=== PATIENT | male | born 1960 | race Caucasian/White ===

== ENCOUNTER 2023-05-18 20:19 | Emergency (ER) | payer BC ==
[~2023-05-18] VITALS: Ht 172.7 cm; Wt 65.8 kg
[2023-05-18 20:34] VITALS: BP 158/88
[2023-05-18] MEDS ORDERED: MELO7.5 (22:50)
[2023-05-18] MEDS ORDERED: Crestor5 MG (22:51)
[2023-05-18] MEDS ORDERED: CEPH500 PO (23:19)
== END 2023-05-18 23:28 | disposition home or self-care (01) ==
LOC: ER 20:19
DX: L03.012 Cellulitis of left finger (principal); E78.5 Hyperlipidemia, unspecified; Z79.899 Other long term (current) drug therapy
CPT/HCPCS: 73140; 99283-25; A9270

== ENCOUNTER → 2023-05-27 | Outpatient (CLI) | payer BC ==
[~2023-05-27] MED LIST: CEPH500 PO; Crestor5 MG; MELO7.5
[2023-05-30 07:12] LABS: HSV-1 DNA Negative (Negative); HSV-2 DNA Negative (Negative)
== END | disposition home or self-care (01) ==
LOC: LAB SHORT 15:13 → LAB 15:13
PROVIDERS: Emergency Medicine
DX: S61.203A Unspecified open wound of left middle finger without damage to nail, initial encounter (principal)
CPT/HCPCS: 87529

== ENCOUNTER 2024-09-02 05:56 | Day surgery (SDC) | payer BC ==
[~2024-09-02] VITALS: Ht 172.7 cm; Wt 67.1 kg
[2024-09-02] VITALS (18 sets, daily range): BP systolic 93–156; BP diastolic 55–86
[~2024-09-02 05:56] MED LIST changes: +ALBU90OI INH; +Amlodipine-Ben1 EACH PO; +Crestor40 MG PO; -Crestor5 MG; -MELO7.5; +MELO7.5 PO; +SYMBICORT 80-10.2 GM INH
[2024-09-02] MEDS ORDERED: Chlorhexidine Mouth Care 15 ML UDC MT SCH (06:15)
[2024-09-02] MEDS ORDERED: OxyCODONE HCL 10 MG TABCR PO SCH (06:15)
[2024-09-02] MEDS ORDERED: Ropivacaine 0.5% HCl/Pf 123.125 MG,EPINEPHrine HCL 0.25 MG,Ketorolac Tromethamine 15 MG... INFIL SCH (06:15)
[2024-09-02] MEDS ORDERED: Acetaminophen 500 MG Tab PO SCH ×2 (06:15→08:00)
[2024-09-02] MEDS ORDERED: Lactated Ringer's 1,000 ML IV SCH ×2 (06:15→07:50)
[2024-09-02] MEDS ORDERED: CeFAZolin Sodium 2,000 MG in NS 100 ML IV SCH ×2 (06:15→16:00)
[2024-09-02] MEDS ORDERED: Tranexamic Acid 100 ML IV SCH (06:40)
[2024-09-02] MEDS ORDERED: Midazolam HCl 1MG / ML 2ML Vial IV ONE (07:15)
[2024-09-02] MEDS ORDERED: Dexmedetomidine HCL 200 MCG / 2 ML ONE (07:27)
[2024-09-02] MEDS ORDERED: Albuterol HFA200 ACT/6.7 GM INH INH PRN (07:45)
[2024-09-02] MEDS ORDERED: DiphenhydrAMINE HCL 25 MG Cap PO PRN (07:45)
[2024-09-02] MEDS ORDERED: Bisacodyl 10 MG Supp PR PRN (07:45)
[2024-09-02] MEDS ORDERED: Mometasone/Formoterol MDI 100/5 mcg 13 GM INH SCH (07:45)
[2024-09-02] MEDS ORDERED: FLU VACC TS2024-25(6MOS UP)/PF 45 MCG/0.5 ML SYRINGE IM SCH (07:50)
[2024-09-02] MEDS ORDERED: HYDROmorphone HCl/Pf 1MG SYR IV PRN (07:50)
[2024-09-02] MEDS ORDERED: Metoclopramide HCl 5MG / ML 2ML Vial IV PRN (07:50)
[2024-09-02] MEDS ORDERED: Magnesium Hydroxide Conc 10 ML UDC PO PRN (07:50)
[2024-09-02] MEDS ORDERED: OxyCODONE HCL 5 MG TAB PO PRN ×2 (07:55)
[2024-09-02] MEDS ORDERED: Ondansetron HCl 2 MG / ML 2ML Vial IV PRN ×2 (07:55→09:00)
[2024-09-02] MEDS ORDERED: Promethazine HCl 25 MG Tab PO PRN (07:55)
[2024-09-02] MEDS ORDERED: Prochlorperazine Edisylate 10 mg Vial IV PRN (07:55)
[2024-09-02] MEDS ORDERED: FentaNYL Citrate 50 MCG/ML 2 ML Injection IV PRN ×2 (08:55→09:00)
[2024-09-02] MEDS ORDERED: AmLODIPine Besylate 5 MG Tab PO SCH (09:00)
[2024-09-02] MEDS ORDERED: Lisinopril 20 MG Tab PO SCH (09:00)
[2024-09-02] MEDS ORDERED: Docusate Sodium 100 MG Cap PO SCH (09:00)
[2024-09-02] MEDS ORDERED: Albuterol 2.5 MG/3 ML VIAL INH PRN (09:00)
--- NOTE | 2024-09-02 11:09 | NUR ---
PT ARRIVED TO THE ROOM AT 1005. PT ALERT/ORIENTED UPON ARRIVAL. PT REPORTS N/T TO BLE, HE HAD SPINAL ANESTHESIA. SPINAL ANESTHESIA SITE WNL. PT EDUCATED TO USE THE CALL LIGHT. CALL LIGHT WITHIN REACH. FAMILY AT BEDSIDE FOR SUPPORT.
[2024-09-02] MEDS ORDERED: Ketorolac Tromethamine 15mg Vial IV SCH (12:00)
[2024-09-02] MEDS ORDERED: MASOPHEN500 M1 PO (15:00)
[2024-09-02] MEDS ORDERED: ASPI81CH PO (15:00)
[2024-09-02] MEDS ORDERED: OXYC5 PO (15:01)
--- NOTE | 2024-09-02 16:30 | NUR ---
DISCHARGE PT PROVIDED WITH WRITTEN AND VERBAL DISCHARGE INSTRUCTIONS, HE REPORTED UNDERSTANDING. CLEAN DRESSING PROVIDED, PT EDUCATED TO USE DRESSING IF INCISION SITE BEGINS TO DRAIN. PAIN MANAGED WITH PO PAIN MEDICATION AT TIME OF DISCHARGE. VSS PRIOR TO DISCHARGE. PT WAS ABLE TO VOID. PT CLEARED THERAPY PRIOR TO DISCHARGE. PT ALSO TOLERATED PO. DR. MARTINEZ NOTIFIED OF PT'S WISH TO DISCHARGE, SHE STATED OK FOR PT TO DC HOME. HE WAS ASSISTED OUT IN A W/C AT APPROXIMATELY 1627.
[2024-09-03] MEDS ORDERED: Aspirin 81 MG Chew PO SCH (09:00)
== END 2024-09-02 16:25 | disposition home or self-care (01) ==
LOC: ORSCMMR 05:56 → ORD 07:30 → ORSCMMR 07:30 → SURS 09:47 → ORSCMMR 16:25
PROVIDERS: Orthopaedic Surgery
PROC: 0SR90JA Replacement of Right Hip Joint with Synthetic Substitute, Uncemented, Open Approach (ICD-10-PCS; principal; 2024-09-02 07:30)
DX: M16.11 Unilateral primary osteoarthritis, right hip (principal); E78.5 Hyperlipidemia, unspecified; I10 Essential (primary) hypertension; Z87.891 Personal history of nicotine dependence; Z79.899 Other long term (current) drug therapy
CPT/HCPCS: 72170; 94640; 94664; 94760; 97110; 97116; 97162; A9270; C1776; J0171; J0690; J0735; J1885; J2250; J2795; J7120

== ENCOUNTER 2024-10-24 10:37 | Emergency (ER) | payer BC ==
[~2024-10-24] VITALS: Ht 172.7 cm; Wt 68.0 kg
[~2024-10-24 10:37] MED LIST changes: +ASPI81CH PO; +MASOPHEN500 M1 PO; +OXYC5 PO
[2024-10-24 11:12] VITALS: BP 167/107
[2024-10-24 11:21] LABS: BASOPHILS ABSOLUTE AUTO 0.08 K/mm3 (0.00-0.23); BASOPHILS PERCENT AUTO 1 % (0-2); EOSINOPHILS ABSOLUTE AUTO 0.79 K/mm3 (0.00-0.68); EOSINOPHILS PERCENT AUTO 6 % (0-6); Hematocrit 39.1 % (37.0-53.0); Hemoglobin 12.9 g/dL (13.5-17.5); IMMATURE GRAN ABSOLUTE AUTO 0.03 K/mm3 (0.00-0.10); IMMATURE GRAN PERCENT AUTO 0 % (0-1); LYMPHOCYTES ABSOLUTE AUTO 1.96 K/mm3 (0.84-5.20); LYMPHOCYTES PERCENT AUTO 15 % (21-46); MONOCYTES ABSOLUTE AUTO 0.89 K/mm3 (0.16-1.47); MONOCYTES PERCENT AUTO 7 % (4-13); Mean Corpuscular HGB 29.2 pg (26.0-34.0); Mean Corpuscular Volume 89 fL (80-100); Mean Platelet Volume 9.3 fL (9.1-12.4); NEUTROPHILS ABSOLUTE AUTO 9.02 K/mm3 (1.96-9.15); NEUTROPHILS PERCENT AUTO 71 % (41-73); Platelet Count 376 K/mm3 (150-400); RDW Coefficient Variation 13.2 % (11.7-14.2); RDW Standard Deviation 42.9 fL (35.1-46.3); Red Blood Cell Count 4.42 M/mm3 (4.30-5.90); White Blood Cell Count 12.77 K/mm3 (4.00-11.30)
[2024-10-24] MEDS ORDERED: Ondansetron HCl 2 MG / ML 2ML Vial IV ONE (11:25)
[2024-10-24] MEDS ORDERED: Ketorolac Tromethamine 30mg Vial IV ONE (11:25)
[2024-10-24 11:42] LABS: Albumin, Blood 3.8 g/dL (3.4-5.0); Albumin/Globulin Ratio 1.1 (0.8-1.8); Bilirubin, Total 0.7 mg/dL (0.1-1.0); Bun/Creatinine Ratio 19.8 (12.0-20.0); Calcium, Blood 9.4 mg/dL (8.5-10.1); Creatinine, Blood 1.01 mg/dL (0.60-1.20); Globulin, Blood 3.4 g/dL (2.2-4.0); Total Protein, Blood 7.2 g/dL (6.4-8.2)
[2024-10-24 12:57] LABS: Source, Urine Clean Catch
[2024-10-24 13:05] LABS: Appearance, Urine Clear (Clear); Bilirubin, Urine Neg (Neg); Blood, Urine Neg (Neg); Glucose Qualitative, Urine Neg (Neg); Ketones, Urine 3+ (Neg); Leukocyte Esterase, Urine Neg (Neg); Nitrite, Urine Neg (Neg); Protein, Urine Neg (Neg); Urobilinogen, Urine NORM (Normal)
[2024-10-24 13:22] LABS: Color, Urine Pale Yellow (P-Yellow)
[2024-10-24] MEDS ORDERED: ONDA4ODT MM (13:53)
[2024-10-24] MEDS ORDERED: IBUP800 PO (13:53)
== END 2024-10-24 14:02 | disposition home or self-care (01) ==
LOC: ER 10:37
PROVIDERS: Physician Assistant
DX: N13.2 Hydronephrosis with renal and ureteral calculous obstruction (principal); E78.5 Hyperlipidemia, unspecified; Z79.52 Long term (current) use of systemic steroids; Z79.899 Other long term (current) drug therapy
CPT/HCPCS: 74177; 80053; 81003; 83605; 83690; 85025; 96374-59; 96375; 99284-25; J1885; J2405; Q9967

== ENCOUNTER 2025-06-03 12:19 | Day surgery (SDC) | payer BC ==
[~2025-06-03] VITALS: Ht 165.1 cm; Wt 71.6 kg
[2025-06-03] VITALS (30 sets, daily range): BP systolic 133–184; BP diastolic 82–104
[~2025-06-03 12:19] MED LIST changes: +IBUP800 PO; +ONDA4ODT MM
--- NOTE | 2025-06-03 13:29 | NUR ---
History, Chart, Medications and Allergies reviewed before start of procedure. Pre-Op teaching done. Pt verbalizes understanding. PT STATES HE DRANK SOME TEA THIS MORNING. Patient states colon prep results DARK YELLOW.
[2025-06-03] MEDS ORDERED: Midazolam HCl 1MG / ML 2ML Vial ONE (13:58)
--- NOTE | 2025-06-03 14:22 | NUR ---
06/03/25 1422 Valentina Rios CONFIRMED AND REVIEWED H&P, MEDCICATIONS, ALLERGIES, MEDICAL HISTORY, RESPIRATORY HISTORY, VITAL SIGNS, 3-LEAD EKG, CONSENTS, AND PHYSICIAN ORDERS. PATIENT CONFIRMS NPO STATUS AND AGREES WITH SCHEDULED PROCEDURE. MONITOR INTACT WITH CONTINUOUS PULSE OXIMETRY, CAPNOGRAPHY, 3-LEAD EKG, INTERMITTENT BP. SUPPLEMENTAL O2 TO BE TITRATED THROUGHOUT PROCEDURE TO MAINTAIN O2 SATURATION ABOVE 90%. PATIENT DETERMINED TO BE ASA APPROPRIATE FOR PROPOFOL SEDATION PRIOR TO START OF PROCEDURE BY DR. STOREY.
--- NOTE | 2025-06-03 15:25 | NUR ---
REVIEWED DISCHARGE INSTRUCTIONS WITH PT AND SPOUSE. DIVERTICULOSIS AND HIGH FIBER HANDOUTS GIVEN. PT REPORTS HIP PAIN THAT IS ONGOING. PT DENIES ABDOMINAL PAIN OR NAUSEA. BP 170'S/100'S. ENCOURAGED PT TO SEEK MEDICAL ADVICE FROM PRIMARY CARE PROVIDER. DISCUSSED THE RISK OR STOKE WITH UNCONTROLLED HYPERTENSION.PT VERBALIZES UNDERSTANDING. DISCHARGED TO HOME, OUT VIA WHEELCHAIR WITH BELONGINGS AND DISCHARGE INSTRUCTIONS ON HAND.
== END 2025-06-03 15:25 | disposition home or self-care (01) ==
LOC: ORSCMMR 12:19 → ORD 12:19 → ORSCMMR 12:20 → ORD 12:20 → ORSCMMR 15:25
PROVIDERS: Family Medicine
PROC: 0DBP8ZX Excision of Rectum, Via Natural or Artificial Opening Endoscopic, Diagnostic (ICD-10-PCS; principal; 2025-06-03 13:30)
DX: Z12.11 Encounter for screening for malignant neoplasm of colon (principal); K62.1 Rectal polyp; K57.30 Diverticulosis of large intestine without perforation or abscess without bleeding; R19.5 Other fecal abnormalities; Z79.899 Other long term (current) drug therapy; I10 Essential (primary) hypertension; J45.909 Unspecified asthma, uncomplicated; E78.5 Hyperlipidemia, unspecified; Z87.891 Personal history of nicotine dependence
CPT/HCPCS: 88305; J2250; J2704; J7120

== ENCOUNTER 2025-06-20 10:43 | Emergency (ER) | payer OTHER, BC ==
[~2025-06-20] VITALS: Ht 165.1 cm; Wt 70.3 kg
[2025-06-20] MEDS ORDERED: Ondansetron 4 MG SoluTab MM ONE (10:50)
[2025-06-20] MEDS ORDERED: IBUP600 PO (11:33)
[2025-06-20 12:14] VITALS: BP 131/92
== END 2025-06-20 12:16 | disposition home or self-care (01) ==
LOC: ER 10:43
DX: S06.0XAA Concussion with loss of consciousness status unknown, initial encounter (principal); E78.5 Hyperlipidemia, unspecified; I10 Essential (primary) hypertension; W01.0XXA Fall on same level from slipping, tripping and stumbling without subsequent striking against object, initial encounter; Z79.51 Long term (current) use of inhaled steroids; Z79.899 Other long term (current) drug therapy
CPT/HCPCS: 70450; 99283-25; A9270